=== PATIENT | female | born 1945 | race Caucasian/White ===

== ENCOUNTER 2018-12-17 07:34 | Day surgery (SDC) | payer MEDICARE ==
[2018-12-17] VITALS (10 sets, daily range): BP systolic 110–139; BP diastolic 64–86
[~2018-12-17] VITALS: Ht 165.1 cm; Wt 76.4 kg
[2018-12-17] MEDS ORDERED: normal saline 1,000 ML IV SCH (08:50)
[2018-12-17] MEDS ORDERED: sodium bicarbonate (8.4%) inj. 150 ML in dextrose 5%-water 1,000 ML IV ONE (08:50)
[2018-12-17] MEDS ORDERED: diphenhydrAMINE 25mg capsule PO PRN (08:50)
[2018-12-17 09:19] LABS: BASOPHILS % (AUTO) 0.2 % (0-1); EOSINOPHILS # (AUTO) 0.1 X10'3 (0-0.9); EOSINOPHILS % (AUTO) 1.2 % (0-6); HEMOGLOBIN 16.8 g/dl (12.0-16.0); LYMPHOCYTES # (AUTO) 1.8 X10'3 (1.1-4.8); LYMPHOCYTES % (AUTO) 23.5 % (21-51); MEAN CORPUSCULAR HEMOGLOBIN 33.3 PG (27.0-31.0); MEAN CORPUSCULAR HGB CONC 34.2 g/dL (33.0-36.5); MEAN CORPUSCULAR VOLUME 97.2 FL (78-98); MEAN PLATELET VOLUME 7.9 FL (7.4-10.4); MONOCYTES # (AUTO) 0.6 X10'3 (0-0.9); MONOCYTES % (AUTO) 7.8 % (2-12); NEUTROPHILS # (AUTO) 5.2 X10'3 (1.8-7.7); NEUTROPHILS % (AUTO) 67.3 % (42-75); PLATELET COUNT 229 X10'3 (140-440); RED BLOOD COUNT 5.05 X10'6 (4.20-5.60); RED CELL DISTRIBUTION WIDTH 14.7 % (11.5-14.5); WHITE BLOOD COUNT 7.7 X10'3 (4.5-11.0)
[2018-12-17] MEDS ORDERED: DOCU250C86 PO (09:25)
[2018-12-17] MEDS ORDERED: LEVO25TA7 PO (09:25)
[2018-12-17] MEDS ORDERED: TIOT4MIS5 INH (09:25)
[2018-12-17] MEDS ORDERED: RANI150C4 PO (09:25)
[2018-12-17] MEDS ORDERED: SIMV20TA5 PO (09:25)
[2018-12-17] MEDS ORDERED: CHOL10002 PO (09:25)
[2018-12-17] MEDS ORDERED: ASPI-107 PO (09:25)
[2018-12-17] MEDS ORDERED: iohexol 350MG/ML 100ml bottle IV ONE (09:30)
[2018-12-17] MEDS ORDERED: heparin 1,000unit/ml 10ml vial 10 ML ONE (09:30)
[2018-12-17] MEDS ORDERED: iohexol 350 MG/ML 50ML vial IV ONE (09:30)
[2018-12-17] MEDS ORDERED: LIDOcaine 1% (10mg/ml)w/preservative injection 20ml MDV ONE (09:30)
[2018-12-17] MEDS ORDERED: midazolam 2 mg/2 ml injection ONE (09:31)
[2018-12-17] MEDS ORDERED: fentaNYL/PF 50MCG/1 ML 2ML syringe ONE (09:31)
[2018-12-17 09:39] LABS: ALBUMIN 3.4 G/DL (3.4-5.0); ANION GAP 7 (8-16); BLOOD UREA NITROGEN 16 MG/DL (7-18); BUN/CREATININE RATIO 23.9 (6.6-38.0); CALCIUM 9.5 MG/DL (8.5-10.1); CHLORIDE 105 MMOL/L (99-107); CREATININE 0.67 MG/DL (0.40-0.90); GLUCOSE 108 MG/DL (70-104); POTASSIUM 3.9 MMOL/L (3.5-5.1); SODIUM 142 MMOL/L (135-145); TOTAL CARBON DIOXIDE 29.9 MMOL/L (24-32); eGFR 87 ML/MIN
[2018-12-17 09:48] LABS: PROTHROMBIN TIME 10.5 SECONDS (9.0-12.0)
== END 2018-12-17 13:55 | disposition home or self-care (01) ==
LOC: SSTAY O 07:34
PROVIDERS: ATTEND Internal Medicine Cardiovascular Disease
DX: I20.9 Angina pectoris, unspecified (principal); I10 Essential (primary) hypertension; E03.9 Hypothyroidism, unspecified; E78.5 Hyperlipidemia, unspecified; J44.9 Chronic obstructive pulmonary disease, unspecified; Z98.51 Tubal ligation status; Z90.49 Acquired absence of other specified parts of digestive tract; Z90.710 Acquired absence of both cervix and uterus; F17.210 Nicotine dependence, cigarettes, uncomplicated; Z80.9 Family history of malignant neoplasm, unspecified
CPT/HCPCS: 36415; 80048; 85025; 85610; 93458; 99152; 99153; A6257; J1644; J2001; J2250; J3010; Q0163; Q9967; C1760; C1769; C1894; J7030